=== PATIENT | female | born 1965 | race Caucasian/White ===

== ENCOUNTER → 2018-03-29 05:49 | Day surgery (SDC) | payer OTHER ==
[~2018-03-29 05:49] MED LIST: Atracurium* 10 MG/ML 10 ML VIAL ONE; Buffered Lidocaine 0.9% SYRIN* 5 ML/SYR SYRINGE INTRADERM ONE; Bupivacaine 0.25% EPI 200,000* 30 ML SDV ONE; Dexamethasone IV* 4 MG/ML 1 ML (4 MG) IV SLOW PU ONE; Dexamethasone IV* 4 MG/ML 1 ML (4 MG) ONE; DiMENhydriNATE IV* 50 MG/ML VIAL IV PUSH PRN; EPINEPHRINE 1 MG/ML 1 ML VIAL ONE; Famotidine IV* 10 MG/ML 2 ML (20 mg) IV ONE; Famotidine IV* 10 MG/ML 2 ML (20 mg) ONE; HYDROmorphone INJ1* 1 MG/ML SYRINGE IV PRN; Levalbuterol 0.63MG/3ML NEB* UNIT OF USE INH ONE; Metoprolol Tartrate IV* 1 MG/ML 5 ML VIAL ONE; Midazolam* 1 MG/ML 5 ML VIAL (5 MG) ONE; Morphine VIAL* 10 MG/ML 1 ML VIAL ONE; Naloxone* 0.4 MG/ML 1 ML VIAL IV PRN; Ondansetron INJ* 2 MG/ML VIAL IV PRN; ROPIVACAINE 5 MG/ML 30 ML BTL (0.5%) ONE; Ropivacaine (OR use only) 2 MG/ML 10 ML ONE; Scopolamine 1.5 mg* PATCH TRANSDERM PRN; ceFAZolin 2 GM in NS PREMIX(*) 2 GM/100 ML BAG IVPB ONE; fentaNYL* 50 MCG/ML 2 ML VIAL (100 MCG VIAL) IV PRN; fentaNYL* 50 MCG/ML 2 ML VIAL (100 MCG VIAL) ONE; oxyCODONE/Acetamin 5/325 MG* TAB PO PRN
[2018-03-29 10:46] VITALS: BP 119/71
--- NOTE | 2018-03-30 15:23 | OP ---
OPERATIVE REPORT: DATE OF OPERATION: 03/29/18 DATE OF : 63 SURGEON: Cruz Gallagher MD LINEN ATTENDANT: TIMO Garcia A physician podiatry assistant was required for the length of the procedure for assistance with positioning, i nstrumentation, and closure. ANESTHESIOLOGIST: Jairo Rodriguez MD ANESTHESIA: General anesthesia, regional interscalene block anesthesia. PRE-OP DIAGNOSES: 1. Left shoulder rotator cuff tear, partial thickness, undersurface supraspinatus. 2. Left shoulder subacromial impingement and acromioclavicular joint arthritis. 3. Possible left shoulder biceps tendinitis or superior labral tear. POST-OP DIAGNOSES: 1. Left shoulder rotator cuff tendon tear, very low grade, partial thickness, undersurface supraspin atus. 2. Left shoulder subacromial impingement and acromioclavicular joint arthritis. 3. Left shoulder superior labrum tear, unstable. OPERATIVE PROCEDURE: 1. Left shoulder arthroscopic subacromial decompression. 2. Left shoulder arthroscopic distal clavicle resection. 3. Left shoulder arthroscopic extensive debridement including release of biceps tendon, debridement of superior labrum, extensive subacromial bursectomy, debridement of undersurface supraspinatus rotat or cuff tendon tear. INDICATIONS: The patient is a 52-year-old woman, right-hand dominant, who works at [employer] at her job, who injured herself at work on 12/29/17 and then again on 01/17/18 at work . The patient responded insufficiently to a full spectrum of aggressive nonoperative management. MRI d emonstrated an undersurface tear of the supraspinatus. The patient opted for surgery. I discussed risks and potential complications of surgery including bleeding, infection, nerve or bloo d vessel injury, shoulder pain, stiffness, rotator cuff tendon re-tear. While the surgery was scheduled as a rotator cuff repair, supraspinatus, I made it clear to the patie nt and her on the morning of surgery, preoperatively, that the patient would possibly only re quire debridement and not repair given that she only had a partial-thickness tear and it was unclear how thick this partial thickness tear was, low grade or high grade. The patient's preoperative MRI w as not especially good. MRI had shown significant evidence of subacromial impingement of bursitis an d AC joint arthritis. Physical exam had been consistent with possible biceps or superior labral path ology as well. ANTIBIOTICS: Ancef 2 g IV. IV FLUIDS: 1100 cc crystalloid. AODH-IC-UJDU TIME: 55 minutes. ARTHROSCOPY FLUID UTILIZED: 7 bags each with 3 L for a total of 21 L. SPECIMEN: None. IMPLANTS: None. COMPLICATIONS: None. DESCRIPTION OF PROCEDURE: Preoperative written consent was obtained. Operative extremity was marked in preoperative holding. The patient received an interscalene regional nerve block in preoperative holding by Dr. Rodriguez. The patient was taken back to the operating room and placed supine on operating room table. The sona ent was sedated and intubated. The patient was transferred to the lateral decubitus position with th e left shoulder up. Axillary roll placed. All bony prominences padded. Walsh bag hardened. Left mily ulder placed in longitudinal traction. The left shoulder was prepped and draped. Surgical time-out was performed. I infused 30 cc of normal saline into the glenohumeral joint, posterior. I then established a graduate civil engineer ior glenohumeral joint portal. I commenced my diagnostic arthroscopy. No articular cartilage damage visualized. The patient did clearly have a superior labral tear. No clear biceps pathology. No bello bscap tear. The patient did have some inflammation in the rotator interval. The patient had very un remarkable looking undersurface supraspinatus. She appeared to have some fraying but no significant tear evident. Established anterior glenohumeral joint portal under direct visualization. Entered a probe and probe d the superior labrum tear that lifted off 5 mm superiorly. I entered an arthroscopic scissors and c ut the long head of the biceps tendon directly off its origin. I then debrided some of the superior labrum tear with my arthroscopic shaver. I debrided some tissue with an arthroscopic shaver in the rotator interval. I next directed my attention to the undersurface supraspinatus. I probed it with an arthroscopic pro be. There appeared to be minimal depth to the lesion. There was no exposed footprint of the rotator cuff footprint. I used an arthroscopic shaver to lightly debride the frayed undersurface tissue. B eneath this were excellent looking longitudinal fibers of rotator cuff. I estimated that this might be 5% or 1 mm of the undersurface tendon, very low grade. Confident that I had fully debrided that t ear, I removed the instruments and fluid from the glenohumeral joint and next moved to the subacromia l space. I established anterior and posterior subacromial portals. I then made a lateral subacromial portal u nder direct visualization. The patient was notable for having a significant amount of bursitic tissu e in the subacromial space. I spent a large amount of time debriding this bursitic tissue with an ar throscopic shaver. The patient definitely had a bony curve to the anterior aspect of the acromion an d osteophytes about the AC joint. It should be stated that prior to leaving the glenohumeral joint, I marked the supraspinatus, at its midpoint anterior to posterior, in the location of the undersurface tear so that I could examine the bursitic side of the tendon in that location. After having debrided the bursitic tissue that needle was still in place. I probed the rotator cuff tendon in that location with both an arthroscopic prob e and a switching stick. Besides a small hole created by the spinal needle, there was essentially no tear whatsoever on the bursal side of the tendon. I viewed this area of tendon through a new graduate civil engineer olateral portal, created under direct visualization and I probed through the lateral portal. I next proceeded to my subacromial decompression. I used an arthroscopic bur to debride the curve or hook of the undersurface of the anterior aspect of the acromion. I nicely flattened out the acromio n undersurface. I next moved to the AC joint. I used a VAPR cautery to debride the bursitic tissue about that joint and then I removed 8 mm of the distal end of the clavicle. My photographs were excellent showing how open that joint had become. I removed the instruments and fluid from the shoulder. Closed skin incisions with [id number] an d twelve stitches using nylon 3-0 suture. Xeroform, 4x4s, ABDs, foam tape. UltraSling. DISPOSITION: The patient was awakened and extubated and taken to the PACU. The patient will follow up in 10 to 14 days in clinic. The patient needs to start physical therapy immediately. The patient will take Percocet for pain control and aspirin x2 weeks for DVT prophylaxis. The patient was provi ded with wound care instructions. [id number]/[facility] #: [id number]
== END | disposition home or self-care (01) ==
LOC: OR 05:49
PROVIDERS: ATTEND Orthopaedic Surgery
DX: S46.012A Strain of muscle(s) and tendon(s) of the rotator cuff of left shoulder, initial encounter (principal); S43.492A Other sprain of left shoulder joint, initial encounter; M75.42 Impingement syndrome of left shoulder; M19.012 Primary osteoarthritis, left shoulder; X50.0XXA Overexertion from strenuous movement or load, initial encounter; Y92.69 Other specified industrial and construction area as the place of occurrence of the external cause; Y99.0 Civilian activity done for income or pay; G89.18 Other acute postprocedural pain; E66.9 Obesity, unspecified; Z72.0 Tobacco use
CPT/HCPCS: J0690; J1100; J2250; J2270; J2795; J3010; J3490